=== PATIENT | male | born 1960 | race Asian ===

== ENCOUNTER 2019-11-22 14:09 | Outpatient (CLI) | payer BC ==
--- NOTE | 2019-11-22 14:41 | RAD ---
Exam:2 views right hip HISTORY: Primary osteoarthritis of the right hip COMPARISON: None FINDINGS: The femoral head is maintained. Hip joint spaces preserved. Visualized bony pelvis and sacr um are intact. IMPRESSION: No fracture. No significant arthritic degenerative change.
== END 2019-11-22 14:10 | disposition home or self-care (01) ==
LOC: SCSRAD 14:09
PROVIDERS: ATTEND Family Medicine
DX: M16.11 Unilateral primary osteoarthritis, right hip (principal)

== ENCOUNTER 2023-12-26 11:04 | Outpatient (CLI) | payer BC | END 2023-12-26 11:05 | disposition home or self-care (01) | LOC: SCSMRI 11:04 | PROVIDERS: ATTEND Family Medicine | DX: G25.2 Other specified forms of tremor (principal) | CPT/HCPCS: 70551 ==

== ENCOUNTER 2024-04-16 08:57 | Outpatient (CLI) | payer BC | END 2024-04-16 08:58 | disposition home or self-care (01) | LOC: NM 08:57 | PROVIDERS: ATTEND Family Medicine | DX: G20.A2 Parkinson's disease without dyskinesia, with fluctuations (principal) | CPT/HCPCS: 78803; A9584 ==

== ENCOUNTER 2025-05-29 09:57 | Outpatient (CLI) | payer BC | END 2025-05-29 09:58 | disposition home or self-care (01) | LOC: SCSRAD 09:57 | PROVIDERS: ATTEND Family Medicine | DX: S43.80XA Sprain of other specified parts of unspecified shoulder girdle, initial encounter (principal) ==